=== PATIENT | female | born 2000 | race Caucasian/White ===

== ENCOUNTER 2022-08-23 11:39 | Emergency (ER) | payer OTHER, SELFPAY ==
[2022-08-23 11:42] VITALS: BP 100/67; PULSE 76; RESP 16; TEMP 36.6; O2SAT 98
--- NOTE | 2022-08-23 11:42 | PC.NURSE ---
Mary in OB made aware pt from Dr. Thomas office is here. Mary states she will head to pt room to do a NST.
[2022-08-23 12:32] VITALS: BP 114/73; PULSE 72
--- NOTE | 2022-08-23 12:57 | ECG_ITS ---
Measurements Intervals [place] Rate: 62 P: 16 AR: 149 QRS: 16 QRSD: 77 T: 8 QT: 387 QTc: 396 Interpretive Statements SINUS RHYTHM NORMAL ECG NO PREVIOUS ECG AVAILABLE FOR COMPARISON Electronically Signed On 08-25-2022 9:53:50 CDT by Bret Quinn D.O.
--- NOTE | 2022-08-23 12:58 | ED.GENADULT ---
HPI - General Adult General Chief complaint: Unspecified Stated complaint: rib pain Time Seen by Provider: 08/23/22 11:58 History of Present Illness HPI narrative: Patient is a 22-year-old female at 36 weeks gestation presenting with left upper quadrant and left lower chest pain. Patient states that she developed left upper quadrant pain over the weekend that is worsened with taking a big breath. States that she initially thought it was just from the baby kicking. States that she tried to relax yesterday and massage the area but then this morning the pain shot into her left shoulder. She became concerned about her heart. States that she feels like she cannot take a big breath without it hurting. Pain improves with stretching and abduction of the shoulder. She denies any leg swelling or erythema. Denies prior blood clots. No further complaints. Related Data Home Medications Medication Instructions Recorded Confirmed albuterol sulfate 90 mcg/actuation 2 puff inhalation QID PRN Wheezing 08/20/22 08/20/22 aerosol inhaler docusate sodium 50 mg capsule 50 mg PO BID 08/20/22 08/20/22 ferrous sulfate 325 mg (65 mg 325 mg PO BID 08/20/22 08/20/22 iron) tablet prenat.vits,quincy,ttw-wfdl-hratz 1 tablet 08/20/22 Allergies Allergy/AdvReac Type Severity Reaction Status Date / Time No Known Allergies Allergy Verified 08/23/22 11:42 Review of Systems Review of Systems: All systems reviewed & are unremarkable except as noted in HPI and below PMFSH Family History Family History Grandparent Breast cancer Grandparent Breast cancer Mother Cervical cancer Social History Social History Substance use: never Spiritual care concerns: No Exam Narrative: GENERAL: Well-appearing, well-nourished, and in no acute distress. HEAD: Normocephalic, atraumatic. EYES: PERRLA and EOMI. ENT: Nares clear, no rhinorrhea or epistaxis. Mucous membranes moist. NECK: Supple. CHEST: Clear to auscultation no respiratory distress. HEART: Regular rate and rhythm. Normal peripheral pulses. ABDOMEN: Soft, appropriately gravid abdomen, focal tenderness left upper quadrant, no guarding or rebound EXTREMITIES: Normal range of motion. No edema. No erythema or edema of either calf SKIN: Warm, dry, no rash. NEURO: No focal deficits. Alert and oriented x3. PSYCH: Normal mood and affect. Course Vital Signs Vital signs: Vital Signs Temperature 98 F 08/23/22 11:42 Pulse Rate 76 08/23/22 11:42 Respiratory Rate 16 08/23/22 11:42 Blood Pressure 100/67 08/23/22 11:42 Pulse Oximetry 98 08/23/22 11:42 Temperature 98 F 08/23/22 11:42 Pulse Rate 82 08/23/22 13:36 Respiratory Rate 18 08/23/22 13:36 Blood Pressure 118/84 08/23/22 13:36 Pulse Oximetry 99 08/23/22 13:36 Medical Decision Making MDM Narrative Medical decision making narrative: Patient is a 22-year-old female at 36 weeks gestation presenting with left upper quadrant pain. Vitals are within normal limits. She is not tachycardic, she is saturating greater than 98% on room air, she is not tachypneic. She does have focal tenderness in the region of her left upper quadrant. I most suspect musculoskeletal pain related to her . The pain is improved with stretching. Though she does describe a pleuritic component to it, her vital signs are completely normal. Her EKG shows normal sinus rhythm, normal axis, no acute ischemic changes. We had a long discussion regarding the risks of pulmonary emboli and the fact that diagnosis we would need a CT scan. Patient would prefer to hold off on radiation at this time which I think is reasonable. We discussed appropriate supportive care with Tylenol, adequate hydration, rest. OB came down and did NST which was reassuring, + reactivity. Strict return precautions were given regarding
[2022-08-23 13:36] VITALS: BP 118/84; PULSE 82; RESP 18; O2SAT 99
== END 2022-08-23 13:37 | disposition home or self-care (01) ==
PROVIDERS: Emergency Provider Emergency Medicine
DX: O26.893 Other specified pregnancy related conditions, third trimester (principal); R10.12 Left upper quadrant pain; Z3A.36 36 weeks gestation of pregnancy
CPT/HCPCS: 93005; 99283

== ENCOUNTER 2022-09-03 22:53 | Observation (INO) | payer OTHER, SELFPAY ==
[2022-09-04 00:11] LABS: Appearance Urine Clear (Clear); Bacteria Urine None Seen /hpf; Bilirubin Urine Negative (Negative); Blood Urine Negative (Negative); Color Urine Yellow (Yellow); Glucose Urine UA Negative (Negative); Ketones Urine Negative (Negative); Leukocyte Esterase Ur 2+ LEU/UL (Negative); Need Manual Microscopic Reviewed; Nitrate Urine Negative (Negative); Non Pathogenic Casts 0-2; Protein Urine Negative (Negative); RBC Urine 0-2 /hpf (0-2); Specific Grav Ur 1.014 (1.001-1.035); Squamous Epithelial Cell Urine Occasional /hpf (Few); Urobilinogen Urine 0.2 mg/dL (<2.0); WBC Urine 0-5 /hpf
[2022-09-04 00:13] LABS: Add Urine Microscopic? YES
[2022-09-04 00:20] VITALS: BMI 30.2
--- NOTE | 2022-09-04 00:20 | OBADM ---
This patient, Moises Joseph, admitted to the OB room Labor/Delivery/Recovery 107 for observation. Patient/family oriented to hospital policies and general routines including ID bracelet, bed and alarms, visiting hours, pain management, procedures, bathroom and other care routines, personal items, smoking policy, room service/diet, and visiting hours. Patient/Family are encouraged to report perceived risks to care and to ask questions if they do not understand what they are told or what they should do.
--- NOTE | 2022-10-03 18:18 | PM.OBTRLD ---
OB - Triage/Final Diagnosis Visit Information Comments/Additional reasons for admission: I have assessed the risk for this patient, Moises Joseph, and determined that she would benefit from observation care. Evaluation Laboratory results: Laboratory Tests 09/03/22 23:45 Urine Color Yellow Urine Appearance Clear Urine pH 6.0 Ur Specific [place] 1.014 Urine Protein Negative Urine Glucose (UA) Negative Urine Ketones Negative Ur Blood (Man) Negative Urine Nitrate Negative Urine Bilirubin Negative Urine Urobilinogen 0.2 Add Ur Microanalysis Reviewed Leukocyte Esterase Rfl 2+ H Urine RBC 0-2 Urine WBC 0-5 Ur Squamous Epith Cells Occasional Urine Bacteria None seen Urine Casts 0-2 Final Diagnosis (1) Amniotic fluid leaking: Code(s): O42.90 - Premature rupture of membranes, unspecified as to length of time between rupture and onset of labor, unspecified weeks of gestation Status: Acute
== END 2022-09-04 00:30 | disposition home or self-care (01) ==
PROVIDERS: Obstetrics & Gynecology; Admitting Provider Obstetrics & Gynecology; Visit Provider Obstetrics & Gynecology
DX: O42.92 Full-term premature rupture of membranes, unspecified as to length of time between rupture and onset of labor (principal); Z3A.38 38 weeks gestation of pregnancy
CPT/HCPCS: 81001; G0378; G0379

== ENCOUNTER 2022-09-08 11:41 | Inpatient (IN) | payer OTHER, SELFPAY ==
[2022-09-08] VITALS (118 sets, daily range): BP systolic 92–142; BP diastolic 54–88; PULSE 51–235; RESP 18; TEMP 36.6; O2SAT 95–100
[2022-09-08 12:42] LABS: Basophils Absolute Auto 0.1 K/mm3 (0.0-0.1); Basophils Percent Auto 0.3 % (0.2-1.2); Eosinophils Absolute Auto 0.2 K/mm3 (0-0.3); Eosinophils Percent Auto 0.7 % (0-4.4); Hematocrit 37.7 % (37.0-47.0); Hemoglobin 12.5 g/dL (12.0-15.0); Immature Granulocyte Absolute 0.11 K/mm3 (0.00-0.031); Immature Granulocyte Percent A 0.5 % (0-0.5); Lymphocytes Absolute Auto 2.65 K/mm3 (0.9-3.2); Lymphocytes Percent Auto 12.7 % (18.3-44.2); Mean Corpuscular HGB Conc 33.2 g/dl (32-36); Mean Corpuscular Volume 84.3 fl (80-100); Mean Platelet Volume 12.4 fl (7.4-10.4); Monocytes Absolute Auto 0.9 K/mm3 (0.1-0.6); Monocytes Percent Auto 4.4 % (2.6-8.5); Neutrophils Absolute Auto 16.9 K/mm3 (1.3-6.7); Neutrophils Percent Auto 81.4 % (45.5-73.1); Platelet Count Result 282 k/mm3 (150-375); Red Blood Count 4.47 M/mm3 (4.2-5.4); Red Cell Distribution Width 13.4 % (11.5-14.5); White Blood Count 20.8 K/mm3 (4.5-10.0)
--- NOTE | 2022-09-08 13:26 | PM.IMHP ---
H&P: HPI History of Present Illness Date/Time: 09/08/22 13:26 Chief Complaint: labor Narrative: Moises is a 22yo G1 at 38.4 who presented in labor. complicted by insufficient care, mostly in 1st/2nd trimester, asthma, and anemia. GBS neg. Review of Systems Review of Systems: All systems reviewed & are unremarkable except as noted in HPI and below PMFSH Family History Family History Grandparent Breast cancer Grandparent Breast cancer Mother Cervical cancer Social History Social History Substance use: never Spiritual care concerns: No Meds Home Medications and Allergies Home Medications Medication Instructions Recorded Confirmed Type albuterol sulfate 90 mcg/actuation 2 puff inhalation QID PRN Wheezing 08/20/22 08/20/22 History aerosol inhaler docusate sodium 50 mg capsule 50 mg PO BID 08/20/22 08/20/22 History ferrous sulfate 325 mg (65 mg 325 mg PO BID 08/20/22 08/20/22 History iron) tablet prenat.vits,quincy,sys-osai-pczer 1 tablet 08/20/22 History Allergies Allergy/AdvReac Type Severity Reaction Status Date / Time No Known Allergies Allergy Verified 08/23/22 11:42 Vital Signs Vital Signs - 24 hr 09/08/22 12:30 09/08/22 12:45 09/08/22 13:00 Pulse Rate 51 L 59 L 63 Blood Pressure 114/71 110/72 114/80 Exam Const: General: no acute distress Resp: Effort & Inspection: normal respiratory effort Auscultation: clear to auscultation bilaterally Cardio: Rate: regular rate Rhythm: regular rhythm GI: GI Palp: Yes Soft to palpation Extrem: General: normal to inspection H&P: Results Labs Labs: Short CBC 09/08/22 Range/Units 12:19 WBC 20.8 H (4.5-10.0) K/mm3 Hgb 12.5 (12.0-15.0) g/dL Hct 37.7 (37.0-47.0) % Plt Count 282 (150-375) k/mm3 Assessment and Plan Assessment and plan (1) Uterine contractions: Code(s): O47.9 - False labor, unspecified Status: Acute Plan FHT category 1 /-2 AROM clear toco q 7-8 pitocin per protocol GBS neg
[2022-09-08] MEDS: LACTATED RINGERS 1,000 ML 999 ML IV CONT (13:49)
[2022-09-08] MEDS: LACTATED RINGERS 1,000 ML 125 ML IV CONT (14:30)
[2022-09-08 14:48] LABS: Rapid Plasma Reagin Non-Reactive (NonReactive)
--- NOTE | 2022-09-08 16:21 | WPDANESEPP ---
Anes - Eval Pre Procedure Procedure: Labor epidural Date/Time: 09/08/22 16:21 Surgeon: Martha Preop Diagnosis: Pain during labor Pre Op Diagnosis: contractions Patient Data Age: 22 Gender: F Height: Weight: Last Vital Signs Pulse 113 H 09/08/22 16:20 BP 112/58 L 09/08/22 16:20 Pulse Ox 99 09/08/22 16:18 O2 Del Method Room Air 09/08/22 13:39 Allergies Allergy/AdvReac Type Severity Reaction Status Date / Time No Known Allergies Allergy Verified 08/23/22 11:42 Home Medications Medication Instructions Recorded Confirmed Type albuterol sulfate 90 mcg/actuation 2 puff inhalation QID PRN Wheezing 08/20/22 08/20/22 History aerosol inhaler docusate sodium 50 mg capsule 50 mg PO BID 08/20/22 08/20/22 History ferrous sulfate 325 mg (65 mg 325 mg PO BID 08/20/22 08/20/22 History iron) tablet prenat.vits,quincy,sfb-tllv-jcwak 1 tablet 08/20/22 History Laboratory Tests 09/08/22 12:19 WBC 20.8 H K/mm3 (4.5-10.0) RBC 4.47 M/mm3 (4.2-5.4) Hgb 12.5 g/dL (12.0-15.0) Hct 37.7 % (37.0-47.0) MCV 84.3 fl (80-100) MCH 28.0 pg (26-34) MCHC 33.2 g/dl (32-36) RDW 13.4 % (11.5-14.5) Plt Count 282 k/mm3 (150-375) MPV 12.4 H fl (7.4-10.4) Immature Gran % (Auto) 0.5 % (0-0.5) Neut % (Auto) 81.4 H % (45.5-73.1) Lymph % (Auto) 12.7 L % (18.3-44.2) [place] % (Auto) 4.4 % (2.6-8.5) Eos % (Auto) 0.7 % (0-4.4) Baso % (Auto) 0.3 % (0.2-1.2) Lymph # (Auto) 2.65 K/mm3 (0.9-3.2) [place] # (Auto) 0.9 H K/mm3 (0.1-0.6) Eos # (Auto) 0.2 K/mm3 (0-0.3) Baso # (Auto) 0.1 K/mm3 (0.0-0.1) Abs Immat Gran (auto) 0.11 H K/mm3 (0.00-0.031) Absolute Neuts (auto) 16.9 H K/mm3 (1.3-6.7) Absolute Nucleated RBC 0.0 K/mm3 (0.0-0.012) Nucleated RBC % 0.0 % (0.0-0.2) RPR Non-reactive (NonReactive) Blood Type A Positive Antibody Screen Negative Patient hx anesthesia problems: none Family hx anesthesia problems: none Results Review: All pre-operative results and documents have been reviewed as part of the pre-operative evaluation. [facility] Family History Family History Grandparent Breast cancer Grandparent Breast cancer Mother Cervical cancer Social History Social History Smoking status: Former smoker Tobacco type: e-cigarettes/vaping Second hand tobacco smoke exposure: No Smoking end date: 11/14/22 Substance use: never Lack of Transportation: No Lack of Food: Never True Current Housing: I Have Housing Concerned About Future Housing: No Difficulty Paying Gas/Electric Bills: No Difficulty Paying for Meds: No Currently Unemployed: No Education: Grade School Difficulty w/ Childcare or Family Care: No Spiritual care concerns: No Exam Day of Procedure 09/08/22 16:21 Patient weight: normal Heart: regular rate and rhythm Lungs: clear to auscultation Airway: Mallampati scale class II Neurological: alert and oriented
[2022-09-08 19:13] LABS: HIV 1/2 Ab P24 Ag Result Negative (Negative)
--- NOTE | 2022-09-08 19:22 | PM.OBPRVD ---
OB - Delivery Note Procedure Delivery date: 09/08/22 Procedure: Delivery augmentation: Rupture of Membranes and Pitocin Delivery monitor: External FHT and Internal Uterine Route of delivery: Laceration Description: Perineal - 2nd Degree Delivery repair: vicryl Quantitative Blood Loss (ml): 210 Anesthesia type: Epidural Disposition: Floor Narrative: With adequate expulsive efforts by the mother, the baby's head was delivered OA. The baby's anterior shoulder was delivered under the pubic symphysis without difficulty. The posterior shoulder and the rest of the baby delivered without difficulty. The infant was placed on the mothers chest and suctioned and stimulated. The cord was clamped and cut after 30 seconds. Mother and baby both stable. Baby Date of : 09/08/22 Time of : 19:07 Weeks of gestation at delivery: 38 Infant gender: Female presentation: vertex Placenta delivery description: Spontaneous Cord Vessel Description: 3 Vessels and Delayed Cord Clamping score one minute: 8 score five minutes: 9
[2022-09-08] MEDS: OXYTOCIN 30 UNITS/NS 500 ML 30 UNITS/500 ML BAG 125 UNITS IV CONT (20:00)
[2022-09-08] MEDS: BENZOCAINE 20% AER SPR (*SP) 56 GM CAN 1 SPRAY TOPICAL (21:38)
[2022-09-08] MEDS: WITCH HAZEL 40 PADS 1 PAD TOPICAL (21:38)
--- NOTE | 2022-09-08 21:51 | PC.NURSE ---
Patient transferred to post room #286 per wheelchair from labor and delivery. Support person present. Oriented to unit, room, information board, rooming in, admission packet and security measures. Patient verbalizes understanding.
[2022-09-08] MEDS: IBUPROFEN 600 MG TABLET PO (22:27)
[2022-09-09 03:50] VITALS: BP 111/67; PULSE 96; RESP 18; TEMP 36.2
[2022-09-09] MEDS: ACETAMINOPHEN 325 MG TABLET 650 MG PO ×2 (03:53→23:35)
[2022-09-09] MEDS: IBUPROFEN 600 MG TABLET PO ×3 (04:28→19:21)
[2022-09-09 04:49] LABS: Hematocrit 30.3 % (37.0-47.0); Hemoglobin 10.2 g/dL (12.0-15.0)
[2022-09-09 07:35] VITALS: BP 113/55; PULSE 66; RESP 18; TEMP 36.9; O2SAT 99
--- NOTE | 2022-09-09 08:21 | PM.OBPNVD ---
OB - PN: Subj Subjective Date/time seen: 09/09/22 08:21 Patient comments: no complaints, pain well controlled, incisional pain, tolerating diet and flatus present OB - PN: Obj Data Labs 09/09/22 03:50 Labs: Laboratory Results - last 24 hr 09/08/22 09/08/22 09/09/22 12:19 17:46 03:50 WBC 20.8 H RBC 4.47 Hgb 12.5 10.2 L Hct 37.7 30.3 L MCV 84.3 MCH 28.0 MCHC 33.2 RDW 13.4 Plt Count 282 MPV 12.4 H Immature Gran % (Auto) 0.5 Neut % (Auto) 81.4 H Lymph % (Auto) 12.7 L [place] % (Auto) 4.4 Eos % (Auto) 0.7 Baso % (Auto) 0.3 Lymph # (Auto) 2.65 [place] # (Auto) 0.9 H Eos # (Auto) 0.2 Baso # (Auto) 0.1 Abs Immat Gran (auto) 0.11 H Absolute Neuts (auto) 16.9 H Absolute Nucleated RBC 0.0 Nucleated RBC % 0.0 RPR Non-reactive HIV 1&2 Ab/P24 Ag 4thGn Negative Blood Type A Positive Antibody Screen Negative OB - PN A/P Plan day: 1 Plan: routine care Comments: No problems, routine care Time Spent With Patient Time: Total time spent is greater than 50% in coordination of care (as documented) at patient's floor/unit and/or counseling patient: Exam Const: General: comfortable, no acute distress and alert Resp: Effort & Inspection: normal respiratory effort Auscultation: no crackles, no rales and no rhonchi Cardio: Rate: regular rate Heart sounds: no click, no murmurs and no rubs GI: Inspection: non-distended GI Palp: No Tenderness to palpation present (GI) Auscultation: normal bowel sounds Other: Incision - CDI Extrem: General: normal to inspection, no pedal edema and no calf tenderness
[2022-09-09] MEDS: DOCUSATE SODIUM 100 MG CAPSULE PO (09:37)
[2022-09-09] MEDS: MULTIVIT/MIN/PREN/FOL AC/IRON TABLET 1 TAB PO (09:37)
--- NOTE | 2022-09-09 10:17 | WPDANLDPN2 ---
Anes-Prog Note L&D Date/Time: 09/09/22 10:17 Comfortable throughout: labor and delivery Neuraxial method: epidural Epidural/Spinal procedure site: clean & non-tender Neuro status: Neuro function grossly intact. Cardiovascular status: normal Respiratory status: normal Airway patency: baseline Mental status: baseline Post-Op hydration status: normal Vital Signs: Last Vital Signs Temp 36.9 C 09/09/22 07:35 Pulse 66 09/09/22 07:35 Resp 18 09/09/22 07:35 BP 113/55 L 09/09/22 07:35 Pulse Ox 99 09/09/22 07:35 O2 Del Method Room Air 09/08/22 13:39 Pain score (VAS): 02/23 I/O: Intake & Output 09/08/22 09/09/22 09/09/22 23:59 07:59 15:59 Intake Total 1500 250 Output Total 220 Balance 1280 250 Post-procedural complaints: none Patient feedback: Patient satisfied with anesthetic care.
[2022-09-09 12:00] VITALS: BP 116/57; PULSE 86; RESP 18; TEMP 37; O2SAT 99
[2022-09-09 19:30] VITALS: BP 119/74; PULSE 76; RESP 16; TEMP 36.7; O2SAT 98
[2022-09-10] MEDS: IBUPROFEN 600 MG TABLET PO (05:22)
--- NOTE | 2022-09-10 07:35 | PM.OBPNVD ---
OB - PN: Subj Subjective Date/time seen: 09/10/22 07:35 s/p vaginal delivery day 2 doing well OB - PN: Obj Data Labs 09/09/22 03:50 OB - PN A/P Time Spent With Patient Time: Total time spent is greater than 50% in coordination of care (as documented) at patient's floor/unit and/or counseling patient: Review of Systems Review of Systems: All systems reviewed & are unremarkable except as noted in HPI and below Exam Const: General: cooperative, healthy appearing and comfortable Chest: Chest palpation & inspection: normal inspection of the chest Resp: Effort & Inspection: normal respiratory effort Cardio: Rate: regular rate Rhythm: regular rhythm GI: Other: soft Skin: General skin exam: normal color Extrem: Right lower extremity: normal to inspection Left lower extremity: normal to inspection
--- NOTE | 2022-09-10 07:37 | PM.OBDSVD ---
DS: Admitting Diagnosis Discharge Date 09/10/22 Admitting Diagnosis IOL DS: Discharge Diagnosis Discharge Diagnosis (1) Vaginal delivery: Code(s): O80 - Encounter for full-term uncomplicated delivery Status: Acute OB - DS: Summary OB Procedures : None OB Procedures Intrapartum: Spontaneous Vag Delivery OB Procedures: : None Time Spent with Patient Time attestation: Total time spent providing and/or coordinating discharge services: Discharge Plan Discharge Attending physician on discharge: Terell Doll Discharging Clinician: Jeana Cruz Patient Disposition: Home, Self-Care Activity: pelvic rest Diet: regular Patient Instructions: Antibiotic Form, How to Stop Smoking (DC) Stand Alone Forms: General Discharge Information Follow-up/Referrals: Miriam Thomas MD [Physician] - 4 Weeks Discharge Medications: Continued docusate sodium 50 mg Capsule 50 mg PO BID ferrous sulfate 325 mg (65 mg iron) Tablet 325 mg PO BID prenat.vits,quincy,bwl-vydp-kwxbb Tablet 1 tablet albuterol sulfate 90 mcg/actuation Hfa Aerosol Inhaler 2 puff INHALATION QID PRN (Reason: Wheezing) Date of admission: 09/08/22 11:41 Primary Care Provider: PHYSICIAN,CLINICAL LAB SCIENTIST Admitting Provider: Miriam Thomas Attending physician on admission: Miriam Thomas Condition: Stable
[2022-09-10 08:10] VITALS: BP 107/60; PULSE 72; RESP 18; TEMP 36.9; O2SAT 100
[2022-09-10] MEDS: BENZOCAINE 20% AER SPR (*SP) 56 GM CAN 1 SPRAY TOPICAL (08:20)
[2022-09-10] MEDS: MULTIVIT/MIN/PREN/FOL AC/IRON TABLET 1 TAB PO (08:20)
[2022-09-10] MEDS: WITCH HAZEL 40 PADS 1 PAD TOPICAL (08:20)
--- NOTE | 2022-09-10 09:26 | PC.NURSE ---
[id number] Introductions were made, then consulted with patient to assess needs related to . Parents led the conversation with her?plans to feed?her and the?experience so far. There is a breast pump in the room that has been used. Primary RN brings pumped breast milk into the room for father of baby to bottle feed to their infant. Father of baby wants to bottle feed with breast milk so mother can get rest. Discussed the risks and benefits of bottle feeding as it pertains to mothers rest. Demonstrated paced bottle feeding and father of baby demonstrated learning. Resources provided for inpatient and outpatient services with the mom/baby guide and name written on the white board. Parents voiced understanding of information and will call if there is a request for assistance.
== END 2022-09-10 12:20 | disposition home or self-care (01) | DRG 560 ==
LOC: ANHLDR 12:13 → ANHOB2 22:02
PROVIDERS: Admitting Provider Obstetrics & Gynecology; Visit Provider Obstetrics & Gynecology
DX: O99.02 Anemia complicating childbirth (principal); Z37.0 Single live birth; Z3A.38 38 weeks gestation of pregnancy; D64.9 Anemia, unspecified; O70.1 Second degree perineal laceration during delivery; O99.52 Diseases of the respiratory system complicating childbirth; J45.909 Unspecified asthma, uncomplicated
CPT/HCPCS: 36415; 85014; 85018; 85025; 86592; 86703; 86850; 86900; 86901; A9270; G0432; J2590; J2795; J7120